=== PATIENT | female | born 1975 | race Two or more races ===

== ENCOUNTER 2018-12-08 12:00 | Inpatient (IN) | payer OTHER ==
[~2018-12-08] VITALS: Ht 157.5 cm; Wt 63.0 kg
== END 2018-12-10 19:58 | disposition home or self-care (01) | DRG 741 ==
LOC: SURH 12-09 05:50 → O/R 12-09 05:50 → SURH 12-09 12:00
PROVIDERS: ADMIT Obstetrics & Gynecology Gynecology
PROC: 0UT24ZZ Resection of Bilateral Ovaries, Percutaneous Endoscopic Approach (ICD-10-PCS; 2018-12-09)
PROC: 0UT74ZZ Resection of Bilateral Fallopian Tubes, Percutaneous Endoscopic Approach (ICD-10-PCS; 2018-12-09)
PROC: 0UTG7ZZ Resection of Vagina, Via Natural or Artificial Opening (ICD-10-PCS; 2018-12-09)
PROC: 0UB Female Reproductive System, Excision (ICD-10-PCS; 2018-12-09)
PROC: 0TN74ZZ Release Left Ureter, Percutaneous Endoscopic Approach (ICD-10-PCS; 2018-12-09)
PROC: 0TN64ZZ Release Right Ureter, Percutaneous Endoscopic Approach (ICD-10-PCS; 2018-12-09)
PROC: 0DJD8ZZ Inspection of Lower Intestinal Tract, Via Natural or Artificial Opening Endoscopic (ICD-10-PCS; 2018-12-09)
PROC: 0UT94ZZ Resection of Uterus, Percutaneous Endoscopic Approach (ICD-10-PCS; principal; 2018-12-09 07:00)
DX: C54.1 Malignant neoplasm of endometrium (principal); N72 Inflammatory disease of cervix uteri; N80.1 Endometriosis of ovary; D25.1 Intramural leiomyoma of uterus; D25.2 Subserosal leiomyoma of uterus